=== PATIENT | female | born 1990 | race Caucasian/White ===

== ENCOUNTER 2020-09-26 11:28 | Emergency (ER) | payer BC, OTHER ==
[2020-09-26 13:41] LABS: RED BLOOD COUNT 5.03 M/UL (4.00-5.10); WHITE BLOOD COUNT 7.7 K/UL (4.5-11.0)
[2020-09-26 14:06] LABS: BUN/CREATININE RATIO 12 (0-10)
[2020-09-26] MEDS ORDERED: ZOFRAN4 MG PO (15:45)
[2020-09-26] MEDS ORDERED: PEPCID20 MG PO (15:45)
== END 2020-09-26 16:25 | disposition home or self-care (01) ==
LOC: ER1 11:28
PROVIDERS: Physician Assistant Medical
DX: R52 Pain, unspecified (principal); R11.2 Nausea with vomiting, unspecified; I10 Essential (primary) hypertension; Z88.6 Allergy status to analgesic agent
CPT/HCPCS: 72170; 80053; 81001; 82550; 82553; 83605; 83874; 84439; 84443; 84484; 84703; 85025; 93005; 96374; 99284; J2405